=== PATIENT | male | born 1935 | race Two or more races ===

== ENCOUNTER → 2016-05-22 | Day surgery (SDC) | payer MEDICARE, BC ==
[2016-05-22] VITALS (10 sets, daily range): BP systolic 155–179; BP diastolic 77–92
[~2016-05-22] VITALS: Ht 160 cm; Wt 58.5 kg
[~2016-05-22] MED LIST: ASPIR 8181 MG ORAL; LR 1000ml 1,000 ML IVLG SCH; LR 1000ml ONE; Propofol 10mg/ml 20ml IV ONE; SLEEPING PILL PO; ZOCOR20 MG ORAL
--- NOTE | 2016-05-22 08:53 | Anethesia Preoperative Eval ---
Anesthesia Pre-op PMH/ROS General Date of Evaluation: May 22, 2016 Time of Evaluation: 08:52 Anesthesiologist: Damon ASA Score: ASA 2 Mallampati Score Class I : Soft palate, uvula, fauces, pillars visible Class II: Soft palate, uvula, fauces visible Class III: Soft palate, base of uvula visible Class IV: Only hard plate visible Mallampati Classification: Class II Surgeon: kaur Diagnosis: GERD/screening Surgical Procedure: EGD/Colonoscopy Anesthesia History: none Family History: no anesthesia problems Allergies: Coded Allergies: No Known Allergies (Unverified , 05/22/16) Medications: see eMAR Past Medical History Cardiovascular: Reports: HTN Pulmonary: Denies: COPD, JANET, asthma, other Gastrointestinal/Genitourinary: Reports: GERD Neurologic/Psychiatric: Denies: CVA, TIA, dementia, depression/anxiety, other Endocrine: Denies: DM, hypothyroidism, other, steroids HEENT: Denies: [place] (L), [place] (R), cataract (L), cataract (R), glaucoma, other Hematology/Immune: Denies: DVT, anemia, bleeding disorder, other Musculoskeletal/Integumentary: Denies: DDD, DJD, OA, RA, edema, other PMH Narrative: HTN, GERD PSxH Narrative: colonoscopy Anesthesia Pre-op Phys. Exam Physician Exam Last Vital Signs Date Time Temp Pulse Resp B/P Pulse Ox O2 Delivery O2 Flow Rate FiO2 05/22/16 07:49 96.7 66 18 158/79 99 Room Air Constitutional: NAD Neurologic: CN 2-12 intact Cardiovascular: RRR Respiratory: CTA Gastrointestinal: S/NT/ND Airway Exam Mallampati Score: Class II MO: full ROM: full Teeth: intact Dentures: no lower, no upper WANDA DENNISON D.O. May 22, 2016 08:53
--- NOTE | 2016-05-22 08:58 | Short Stay Surgery H&P ---
History of Present Illness History of Present Illness Chief Complaint Abdominal pains,GERDs and constipation HPI Gavin Murrieta is a 80 year old male who was admitted on for GERD and abdominal pains/screening colon Patient History Allergies: Coded Allergies: No Known Allergies (Unverified , 05/22/16) PAST MEDICAL HISTORY: (1) Diabetes (2) Hyperlipidemia Past Surgeries: Social History: Medication History Scheduled Aspirin* (Aspir 81*), 81 MG ORAL DAILY, (Reported) Simvastatin (Zocor), 20 MG ORAL BEDTIME, (Reported) [Sleeping Pill], 100 MG PO HS, (Reported) Review of Systems Cardiovascular: Reports: no symptoms Respiratory: Reports: no symptoms Skeletal: Reports: no symptoms Gastrointestinal: Reports: gastro esophageal reflux disease Genitourinary: Reports: no symptoms Neurologic: Reports: no symptoms Endocrine: Reports: no symptoms Hematologic: Reports: no symptoms Physical Exam Vital Signs Last Vital Signs Date Time Temp Pulse Resp B/P Pulse Ox O2 Delivery O2 Flow Rate FiO2 05/22/16 07:49 96.7 66 18 158/79 99 Room Air Skin: normal HENT: normal Heart: normal Lungs: normal Abdomen: normal Extremities: normal Genitourinary: normal Plan Plan of Care Upper and Lower GI endoscopy Preop Interventions None. Summary of Findings see the reports Final Diagnosis: Attestation Are the patient's medical conditions optimized for surgery? Attestation Response: yes KAYLEE GUTIERREZ May 22, 2016 08:58
--- NOTE | 2016-05-22 08:59 | Pre-Procedure Note/Attestation ---
Pre-Procedure Note/Attestation Complete Prior to Procedure Planned Procedure: left Procedure Narrative: Endoscopi examination of the upper and lower GI tract Indications for Procedure Pre-Operative Diagnosis: R/O peptic Ulcer and colon polyps/CA Attestation I attest that I discussed the nature of the procedure; its benefits; risks and complications; and alternatives (and the risks and benefits of such alternatives ), prior to the procedure, with the patient (or the patient's legal applications sales representative). I attest that, if there was a reasonable possibility of needing a blood transfusion, the patient (or the patient's legal applications sales representative) was given the [place] [facility] [employer] [facility] standardized written summary, pursuant to the [place]e [place] Blood Safety Act ([place] Health and Safety Code # 1645, as amended). I attest that I re-evaluated the patient just prior to the surgery and that there has been no change in the patient's H&P, except as documented below: MATTSAID May 22, 2016 08:59
--- NOTE | 2016-05-22 09:16 | Immediate Post-Op Evaluation ---
Immediate Post-Op Evalulation Immediate Post-Op Evalulation Procedure: EGD with biopsy/colonoscopy Date of Evaluation: May 22, 2016 Time of Evaluation: 09:15 IV Fluids: 400ml Blood Products: non Estimated Blood Loss: non Urinary Output: due to void Blood Pressure Systolic: 166 Blood Pressure Diastolic: 92 Pulse Rate: 60 Respiratory Rate: 16 O2 Sat by Pulse Oximetry: 99 Temperature (Fahrenheit): 98 Pain Score (1-10): 0 Nausea: No Vomiting: No Complications none Patient Status: awake, reacts Hydration Status: adequate Drug: n/a WANDA DENNISON D.O. May 22, 2016 09:16
--- NOTE | 2016-05-22 09:19 | Endoscopy Procedure Note ---
Endoscopy Procedure Note Indication for Procedure: Abdominal pains and GERds /screening colon Procedures Performed: EGD - Small sliding Hiatal Hernia; otherwise normal upper GI endoscopy with gastric body biospy done per random., colonoscopy - Poor colon prep. Left colon diverticulosis with high redundancy; otherwise normal colonoscopy with no polyps/tumors. Specimen: yes Pt Tolerated Procedure Well: Yes Estimated Blood Loss: none Anesthesiologist: Dr. Nelson Anesthesia: moderate sedation Medication Given: see anesthesia record Implant(s) used?: No 50 yrs or older w/o bx or poly: Yes 10yrs. F/U not recommended: No If not recommended, why?: 10 yrs. F/U needed: No 18 years or older w/prev. colo: No <3yrs. since last colonoscopy: No Med reason:<3 yrs.: System Reason:<3 yrs.: KAYLEE GUTIERREZ May 22, 2016 09:19
--- NOTE | 2016-05-22 09:20 | Discharge Instructions ---
Discharge Instructions Discharge Instructions Follow up with: See the doctor after two weeks in the office. For Congestive Heart Failure Reminder Report to your physician any weight gain of 5 pounds or more in one week. KAYLEE GUTIERREZ May 22, 2016 09:20
--- NOTE | 2016-05-22 09:28 | 48 Hour Post Anesthesia Eval ---
Post Anesthesia Evaluation Procedure: EGD with biopsy/colonoscopy Date of Evaluation: May 22, 2016 Time of Evaluation: 09:26 Blood Pressure Systolic: 166 0: 92 Pulse Rate: 60 Respiratory Rate: 16 Temperature (Fahrenheit): 98 O2 Sat by Pulse Oximetry: 99 Nausea: No Vomiting: No Pain Intensity: 0 Cardiopulmonary Status: stable Mental Status/LOC: patient returned to baseline Follow-up Care/Observations: as per GI Post-Anesthesia Complications: none Follow-up care needed: N/A WANDA DENNISON D.O. May 22, 2016 09:28
--- NOTE | 2016-05-22 18:38 | Procedure Note ---
DATE OF PROCEDURE: 05/22/2016 SURGEON: José Miguel Stock M.D. PROCEDURE PERFORMED: Total colonoscopy. PREOPERATIVE DIAGNOSES: Abdominal pain, rule out colon polyps/tumors, and screening colonoscopy. POSTOPERATIVE DIAGNOSES: 1. Diverticulosis of the left colon with high redundancy. 2. Poor colonic preparation, otherwise, normal study up to the base of the cecum as examined. MEDICATION USED: Per Dr. Lea, anesthesiologist INSTRUMENT: GIF Olympus videocolonoscope. DESCRIPTION OF PROCEDURE: The patient, after arriving in the endoscopy unit, was told about risks and benefits of the procedure, which he accepted and signed the informed consent. He was then put on the left lateral decubitus position. After adequate IV sedation, the scope was gently passed through the anal area, which revealed normal findings and a retroflexion maneuver was applied here, which revealed evidence of hypertrophic anal papillae. Finally, the scope was passed through highly redundant and twisted left colon, which was involved with diverticular disease; however, there were not any tumors or polyps. The colon cleanup was not adequate as there was liquidy stool along the colon, particularly in the left side, which made the examination difficult. However, upon irrigation, it was found that there were no other major polyps, tumors, etc., though evidence of a small hyperplastic diminutive polypoid lesion could not be ruled out due to lack of adequate preparation. Finally, the scope could reach to the splenic flexure, from there into transverse colon, hepatic flexure, right colon, and all the way to the base of the cecum. All these areas remained to be normal without any particular abnormality. Finally within 7 minutes, the scope was gradually pulled out and re-evaluation of the colon did not reveal any other findings. The patient tolerated the procedure well and left the endoscopy room in a good condition. José Miguel Stock M.D. DR: DEMARIO JOB#: [id number] CC:
--- NOTE | 2016-05-22 19:28 | Operative Note - Dictated ---
DATE OF OPERATION: 05/22/2016 PREOPERATIVE DIAGNOSES: 1. History of gastroesophageal acid reflux. 2. Abdominal pain. POSTOPERATIVE DIAGNOSIS: A small sliding hiatal hernia, otherwise completely normal upper gastrointestinal endoscopy. Biopsy was done per random from gastric body. PROCEDURE: Esophagogastroduodenoscopy with biopsy. SURGEON: José Miguel Stock M.D. MEDICATION USED: Per anesthesiologist. INSTRUMENT: GIF Olympus upper gastrointestinal video endoscope. DESCRIPTION OF PROCEDURE: The patient after arriving in endoscopy unit, was told about risks and benefits of the procedure, which he accepted and signed the informed consent. He was then put on the left lateral decubitus position. After adequate IV sedation, scope was gently passed through the cricopharyngeal area, was lodged into the upper esophagus, and gradually advanced towards gastroesophageal junction. The entire esophagus looked normal. No evidence of inflammatory process, ulcers, varices etc. was found. GE junction also looked normal without Carlson's, however, there was small sliding hiatal hernia of no great significance. The scope was then guided into the stomach. Gastric cavity was distended with insufflation of air. The areas of the fundus and the body and the antrum were examined carefully, which revealed no abnormality, and no ulcers, tumors, polyps etc. One random biopsy from gastric body was obtained. Subsequently, the scope was passed through the pylorus. First and second portion of duodenum were found to be also within normal limits. At this time, the scope was pulled out. The procedure was terminated. The patient tolerated the procedure well. José Miguel Stock M.D. DR: STU JOB#: [id number] CC: NAEL
== END | disposition home or self-care (01) ==
LOC: GAS 07:17
DX: Z12.11 Encounter for screening for malignant neoplasm of colon (principal); K57.30 Diverticulosis of large intestine without perforation or abscess without bleeding; Q43.8 Other specified congenital malformations of intestine; K29.50 Unspecified chronic gastritis without bleeding; K44.9 Diaphragmatic hernia without obstruction or gangrene; E11.9 Type 2 diabetes mellitus without complications; E78.5 Hyperlipidemia, unspecified; I10 Essential (primary) hypertension; Z79.82 Long term (current) use of aspirin
CPT/HCPCS: 43239; G0121; J2704; J7120; 94003; 94150